=== PATIENT | female | born 1970 | race Two or more races ===

== ENCOUNTER 2017-06-14 11:24 | Inpatient (IN) | payer MEDICAID, OTHER ==
[~2017-06-14] VITALS: Ht 167.6 cm; Wt 67.1 kg
--- NOTE | 2017-06-14 12:00 | NUR ---
BBRA 860 FROM HOME FOR NAUSEA/VOMITING S/P DRINKING ALCOHOL YESTERDAY. NOTED ANXIOUS, FLUSHED. SEEN BY STOCK SHEETS CLEANER INSPECTOR FOR EVAL. VSS. IV ACCESS STARTED. BLOOD DRAWN FOR LABS. SAFETY AND COMFORT MEASURES PROVIDED. WILL MONITOR.
[2017-06-14] MEDS ORDERED: ONDANSETRON HCL/PF 4 MG/2 ML VIAL ONE (12:23)
[2017-06-14] MEDS ORDERED: LORAZEPAM INJ 2 MG/ML VIAL ONE ×3 (12:24→16:22)
[2017-06-14 12:27] LABS: BASOPHILS # (AUTO) 0.2 /CMM (0.0-0.2); BASOPHILS % (AUTO) 1.2 % (0.0-2.0); EOSINOPHILS # (AUTO) 0.1 /CMM (0.0-0.7); EOSINOPHILS % (AUTO) 0.5 % (0.0-6.0); HEMATOCRIT 45 % (33-45); HEMOGLOBIN 15.3 g/dL (11.5-14.8); LYMPHOCYTES # (AUTO) 1.4 /CMM (0.8-4.8); MEAN CORPUSCULAR HEMOGLOBIN 32 PG (26.0-33.0); MEAN CORPUSCULAR HGB CONC 34 g/dl (31.0-36.0); MEAN CORPUSCULAR VOLUME 95 fL (82-100); MONOCYTES # (AUTO) 0.8 /CMM (0.1-1.30); MONOCYTES % (AUTO) 5.6 % (2.0-12.0); NEUTROPHILS # (AUTO) 12.7 /CMM (1.8-8.9); NEUTROPHILS % (AUTO) 83.7 % (43.0-81.0); PLATELET COUNT (AUTO) 316 /CMM (150-450); RDW COEFFICIENT OF VARIATION 14.4 (11.5-15.0); RED BLOOD CELL COUNT(AUTO) 4.78 MIL/uL (4.0-5.2); WHITE BLOOD COUNT (AUTO) 15.2 K/uL (4.3-11.0)
[2017-06-14] MEDS ORDERED: IV NS 0.9% 1,000 ML BAG IV ONE (12:30)
[2017-06-14] MEDS ORDERED: LORAZEPAM INJ 2 MG/ML VIAL IVP ONE (12:30)
[2017-06-14] MEDS ORDERED: ONDANSETRON HCL/PF 4 MG/2 ML VIAL IVP ONE (12:30)
--- NOTE | 2017-06-14 12:30 | NUR ---
PT MEDICATED ORDERED.
[2017-06-14 12:37] LABS: ALANINE AMINOTRANSFERASE 40 U/L (12-78); ALBUMIN 4.8 g/dL (3.4-5.0); ALCOHOL, BLOOD < 3 mg/dL (0-0); ALKALINE PHOSPHATASE 143 U/L (46-116); ASPARTATE AMINOTRANSFERASE 82 U/L (15-37); BILIRUBIN,DIRECT 0.3 mg/dL (0.0-0.2); BILIRUBIN,TOTAL 1.2 mg/dL (0.2-1.0); CALCIUM, SERUM 9.1 mg/dL (8.5-10.1); CARBON DIOXIDE 36 mmol/L (21-32); CHLORIDE 93 mmol/L (98-107); CREATININE 1.3 mg/dL (0.6-1.3); GLUCOSE 212 mg/dL (74-106); SODIUM SERUM 141 mmol/L (136-145); TOTAL PROTEIN, SERUM 8.9 g/dL (6.4-8.2); UREA NITROGEN, BLOOD 14 mg/dL (7-18)
[2017-06-14 12:39] LABS: POTASSIUM 2.4 mmol/L (3.5-5.1)
[2017-06-14] MEDS ORDERED: LORAZEPAM INJ 2 MG/ML VIAL IV ONE (13:00)
[2017-06-14] MEDS ORDERED: POTASSIUM CHLORIDE 20 MEQ TAB.PRT.SR PO ONE ×2 (13:00→13:06)
[2017-06-14] MEDS ORDERED: POTASSIUM CL. PREMIX PERIPHER. 200 ML ONE (13:05)
[2017-06-14] MEDS: POTASSIUM CL. PREMIX PERIPHER. 50 ML IV SCH ×4 (13:30→16:35)
--- NOTE | 2017-06-14 13:35 | NUR ---
PT C/O NAUSEA/VOMTING- MANAGER BANKING MADE AWARE. NEW ORDERS CARRIED OUT.
[2017-06-14] MEDS ORDERED: PROMETHAZINE HCL 25 MG/ML AMPUL ONE (13:42)
[2017-06-14] MEDS ORDERED: Magnesium 1GM/D5W 100ML PREMIX 200 ML IV ONE (13:42)
[2017-06-14] MEDS ORDERED: PROMETHAZINE HCL 25 MG/ML AMPUL IV ONE (14:00)
[2017-06-14] MEDS: Magnesium 1GM/D5W 100ML PREMIX 100 ML IV SCH ×2 (14:20→15:25)
[2017-06-14] MEDS ORDERED: METOCLOPRAMIDE HCL 10 MG/2 ML VIAL ONE (14:35)
[2017-06-14] MEDS ORDERED: diphenhydrAMINE HCL 50 MG/ML VIAL ONE (14:35)
[2017-06-14] MEDS ORDERED: METOCLOPRAMIDE HCL 10 MG/2 ML VIAL IV ONE (15:00)
[2017-06-14] MEDS ORDERED: diphenhydrAMINE HCL 50 MG/ML VIAL IV ONE (15:00)
--- NOTE | 2017-06-14 15:11 | NUR ---
Patient is resting comfortably in bed with eyes closed. Easily aroused. VSS
--- NOTE | 2017-06-14 15:40 | NUR ---
PAGED DR TOLEDO
[2017-06-14] MEDS ORDERED: CLON1TAB4 PO (15:52)
[2017-06-14] MEDS ORDERED: CHOL400T11 PO (15:52)
[2017-06-14] MEDS ORDERED: ZOLP12.52 PO (15:52)
[2017-06-14] MEDS ORDERED: LORA1TAB PO (15:52)
[2017-06-14] MEDS ORDERED: HYDR8TAB2 PO (15:52)
[2017-06-14] MEDS ORDERED: THIA100T74 PO (15:52)
[2017-06-14] MEDS ORDERED: LAMO200T2 PO (15:52)
[2017-06-14] MEDS ORDERED: ATOR10TA PO (15:52)
--- NOTE | 2017-06-14 16:00 | NUR ---
DR. TOLEDO AT BS.
[2017-06-14] MEDS ORDERED: IV D5/0.45 NACL 1,000 ML IV PRN (16:03)
[2017-06-14] MEDS: LORAZEPAM INJ 2 MG/ML VIAL IV PRN ×2 (16:24→20:23)
[2017-06-14] MEDS ORDERED: ACETAMINOPHEN 325 MG TABLET PO PRN ×2 (16:30→17:15)
[2017-06-14] MEDS ORDERED: PANTOPRAZOLE 40 MG VIAL IV SCH (16:30)
[2017-06-14] MEDS ORDERED: Z GUARD REMEDY 2 OZ OINT TP PRN ×2 (16:30→17:15)
[2017-06-14] MEDS ORDERED: ONDANSETRON HCL/PF 4 MG/2 ML VIAL IVP PRN ×2 (16:30→17:15)
[2017-06-14] MEDS ORDERED: ZOLPIDEM TARTRATE 5 MG TABLET PO PRN (16:30)
--- NOTE | 2017-06-14 16:46 | NUR ---
REPORT GIVEN TO LARRY RN FOR TELE ROOM 320-1
[2017-06-14] MEDS: IV D5/0.45 NACL 1,000 ML IV PRN (18:57)
--- NOTE | 2017-06-14 19:11 | NUR ---
AM RN NOTE Received patient from ER @1800 as accompanied by ER staff. Pt A/O X4 verbally responsive. Denies any pain, N/V at this time. Resp even and non-labored. Placed on tele monitor, SR 90's. IV on LAC #20 intact and patent. V/S BP129/75 T98.5 P91 R19 PA0/10 O2 sat 95% at RA. Pt seen and assessed by Dr. Butts in ER. Pt refused to change her clothes at this time stated she wants to rest. Will endorse care to next shift.
[2017-06-14 19:30] VITALS: BP 149/89
--- NOTE | 2017-06-14 19:30 | NUR ---
RN NOTES RECEIVED PATIENT IN BED AWAKE, AO X 3, ABLE TO MAKE NEEDS KNOWN. NO ACUTE DISTRESS NOTED. MONITORED FOR PAIN. SKIN ASSESSMENT DONE. IV SITE PATENT, INTACT; IVF INFUSING ORDERED. SAFETY REMINDERS GIVEN. ON LOW BED WITH BILATERAL UPPER SIDE RAILS UP. CALL LIGHT WITHIN EASY REACH. WILL CONTINUE TO MONITOR.
[2017-06-14 20:00] VITALS: BP 149/89
[2017-06-14] MEDS: ZOLPIDEM TARTRATE 5 MG TABLET PO PRN (21:50)
[2017-06-15 00:46] VITALS: BP 144/85
[2017-06-15] MEDS: IV D5/0.45 NACL 1,000 ML IV PRN ×3 (03:17→21:09)
[2017-06-15] MEDS: LORAZEPAM INJ 2 MG/ML VIAL IV PRN ×6 (05:28→21:09)
--- NOTE | 2017-06-15 06:04 | NUR ---
RN NOTES PATIENT ASLEEP, EASILY AROUSABLE. RESPIRATIONS EVEN. NO SIGNS OF PAIN NOTED. NEEDS ATTENDED. SAFETY PRECAUTIONS AND COMFORT MEASURES IN PLACE. ATIVAN GIVEN TWICE FOR C/O ANXIETY; NONPHARMACOLOGICAL INTERVENTIONS INEFFECTIVE. WILL GIVE REPORT TO DAY SHIFT FOR CONTINUITY OF CARE.
--- NOTE | 2017-06-15 07:00 | NUR ---
RN INITIAL NOTES REPORT RECEIVED AT THE BEDSIDE. PATIENT IS RESTING COMFORTABLY IN BED. NO SOB OR DISTRESS NOTED AT THIS TIME. PATIENT DENIES PAIN. BED IN A LOW POSITION, CALL LIGHT WITHIN PATIENT REACH. WILL CONTINUE TO MONITOR.
[2017-06-15 08:00] VITALS: BP 124/79
[2017-06-15] MEDS: PANTOPRAZOLE 40 MG VIAL IV SCH (08:03)
--- NOTE | 2017-06-15 08:35 | NUR ---
RN NOTES DR TOLEDO ON FLOOR. REMINDED MD OF NEED OF MED RECON AND THAT PATIENT IS REQUESTING HER PAIN MEDICATION FROM HOME. MD STATES HE WILL TAKE A LOOK AT IT AND MAKE CHANGES TO ORDERS NEEDED.
[2017-06-15] MEDS: Thiamine 100 MG in IV D5W 50 ML IV SCH (09:29)
--- NOTE | 2017-06-15 09:40 | NUR ---
RN NOTES REMINDED MD OF NEED FOR RECON OF PATIENT PAIN MEDICATIONS. MD STATES HE WILL TAKE CARE OF IT.
[2017-06-15 10:15] LABS: BASOPHILS % (AUTO) 0.6 % (0.0-2.0); EOSINOPHILS % (AUTO) 0.6 % (0.0-6.0); HEMATOCRIT 41 % (33-45); HEMOGLOBIN 13.5 g/dL (11.5-14.8); LYMPHOCYTES # (AUTO) 1.5 /CMM (0.8-4.8); LYMPHOCYTES % (AUTO) 22.9 % (20.0-44.0); MEAN CORPUSCULAR HEMOGLOBIN 32 PG (26.0-33.0); MEAN CORPUSCULAR HGB CONC 33 g/dl (31.0-36.0); MEAN CORPUSCULAR VOLUME 96 fL (82-100); MONOCYTES # (AUTO) 0.4 /CMM (0.1-1.30); MONOCYTES % (AUTO) 6.6 % (2.0-12.0); NEUTROPHILS # (AUTO) 4.5 /CMM (1.8-8.9); NEUTROPHILS % (AUTO) 69.3 % (43.0-81.0); PLATELET COUNT (AUTO) 178 /CMM (150-450); RDW COEFFICIENT OF VARIATION 15.3 (11.5-15.0); WHITE BLOOD COUNT (AUTO) 6.4 K/uL (4.3-11.0)
[2017-06-15] MEDS: Folic acid 1 MG in IV D5W 50 ML IV SCH (10:22)
[2017-06-15 10:30] LABS: BILIRUBIN,TOTAL 1.4 mg/dL (0.2-1.0); CREATININE 0.9 mg/dL (0.6-1.3); MAGNESIUM 1.9 mg/dL (1.8-2.4); TOTAL PROTEIN, SERUM 7.5 g/dL (6.4-8.2)
[2017-06-15 10:38] LABS: POTASSIUM 2.7 mmol/L (3.5-5.1)
--- NOTE | 2017-06-15 10:45 | NUR ---
RN NOTES RECEIVED CALL FROM LAB THAT PT POTASSIUM IS 2.7. CALLED DR TOLEDO WHO ORDERED 60MEQ IV NOW. WILL PLACE AND CARRY OUT ORDERS.
[2017-06-15] MEDS: POTASSIUM CL. PREMIX PERIPHER. 50 ML IV SCH ×6 (10:51→19:13)
--- NOTE | 2017-06-15 11:09 | NUR ---
RN NOTES RUNNING POTASSIUM 40ML/HR WITH NS TO HELP STOP BURNING IN VEIN.
--- NOTE | 2017-06-15 13:40 | NUR ---
RN NOTES SPOKE TO DR TOLEDO ON THE PHONE AND REMINDED HIM OF MED RECON AND PAIN MEDICATIONS. MD STATES HE WILL LOOK INTO IT.
[2017-06-15 16:00] VITALS: BP 133/76
--- NOTE | 2017-06-15 16:10 | NUR ---
RN NOTES RECEIVED PATIENT AWAKE ALERT AND VERBALLY RESPONSIVE, SITTING UP IN BED, ABLE TO MAKE NEEDS KNOWN. RESPIRATIONS EVEN AND UNLABORED, CONTINUED ON PAIN MEDICATION PRN DENIES ANY PAIN AT THIS TIME. IV ACCESS PATENT AND INTACT NO REDNESS OR INFILTRATION NOTED. SAFETY MEASURES IN PLACE, KEPT CLEAN DRY AND COMFORTABLE CALL LIGHT WITHIN EASY REACH WILL CONTINUE TO MONITOR
--- NOTE | 2017-06-15 16:16 | NUR ---
RN NOTES NOT SIGNIFICANT CHANGES IN PATIENT CONDITION THROUGHOUT SHIFT. NO SOB OR DISTRESS NOTED AT THIS TIME. PATIENT REPORTS TOLERABLE PAIN. BED IN A LOW POSITION, CALL LIGHT WITHIN PATIENT REACH. ENDORSED TO WARNER REBOLLAR FOR MARTHA.
--- NOTE | 2017-06-15 19:10 | NUR ---
RN NOTES PATIENT ASLEEP EASILY AROUSABLE DURING CARE, VERBALLY RESPONSIVE, ABLE TO MAKE NEEDS KNOWN. RESPIRATIONS EVEN AND UNLABORED, PRN ATIVAN GIVEN WITH NO ASE NOTED NO N/V NOTED. IV ACCESS PATENT AND INTACT NO REDNESS OR INFILTRATION NOTED. SAFETY MEASURES IN PLACE, KEPT CLEAN DRY AND COMFORTABLE CALL LIGHT WITHIN EASY REACH WILL CONTINUE TO MONITOR AND ENDORSE TO NEXT SHIFT FOR CONTINUITY OF CARE
--- NOTE | 2017-06-15 19:15 | NUR ---
RN OPEN NOTES RECEIVED PATIENT AWAKE IN BED. A/O X4. NO SIGNS OF DISTRESS OR DISCOMFORT. BREATHING EVEN AND UNLABORED. IV ACCESS IN RFA WITH D5 1/2 NS INFUSING, PATENT AND INTACT, NO SIGNS OF REDNESS OR INFILTRATION. DENIES ANY PAIN AT THIS TIME. BED IN LOW LOCKED POSITION WITH SIDE RAILS X2. CALL LIGHT WITHIN REACH. WILL CONTINUE TO MONITOR.
[2017-06-15 19:53] VITALS: BP 142/83
[2017-06-15 20:05] VITALS: BP 142/83
--- NOTE | 2017-06-15 21:09 | NUR ---
RN NOTES ADMINISTERED ATIVAN 1MG ORDERED, AT PATIENT REQUEST FOR ANXIETY. WILL CONTINUE TO MONITOR.
[2017-06-15] MEDS: ZOLPIDEM TARTRATE 5 MG TABLET PO PRN (21:59)
[2017-06-16] MEDS: LORAZEPAM INJ 2 MG/ML VIAL IV PRN ×4 (00:32→14:22)
[2017-06-16] MEDS: IV D5/0.45 NACL 1,000 ML IV PRN (06:07)
--- NOTE | 2017-06-16 06:40 | NUR ---
RN NOTES ADMINISTERED ATIVAN 1MG ORDERED AT PATIENT REQUEST FOR ANXIETY. WILL CONTINUE TO MONITOR.
--- NOTE | 2017-06-16 06:53 | NUR ---
RN CLOSING NOTES PATIENT AWAKE IN BED. A/O X4. NO SIGNS OF DISTRESS OR DISCOMFORT. BREATHING EVEN AND UNLABORED. IV ACCESS IN RFA WITH D5 1/2 NS INFUSING, PATENT AND INTACT, NO SIGNS OF REDNESS OR INFILTRATION. DENIES ANY PAIN AT THIS TIME. ALL NEEDS MET. NO SIGNIFICANT CHANGES THROUGH THE NIGHT. BED IN LOW LOCKED POSITION WITH SIDE RAILS X2. CALL LIGHT WITHIN REACH. WILL CONTINUE TO MONITOR. Addendum: 06/16/17 at 0654 by KISHORE VALDEZ RN WILL ENDORSE TO AM SHIFT FOR MARTHA.
[2017-06-16 07:33] LABS: CALCIUM, SERUM 8.2 mg/dL (8.5-10.1); CREATININE 0.7 mg/dL (0.6-1.3); POTASSIUM 3.2 mmol/L (3.5-5.1)
--- NOTE | 2017-06-16 07:44 | NUR ---
RN NOTES PT AWAKE AND ORIENTED. RESTING IN BED. NO COMPLAINTS OF PAIN OR DISTRESS. WILL CONTINUE TO FOLLOW UP AND MONITOR. CALL LIGHT WITHIN REACH.
[2017-06-16 08:00] VITALS: BP 143/86
[2017-06-16] MEDS: Thiamine 100 MG in IV D5W 50 ML IV SCH (09:51)
[2017-06-16] MEDS: PANTOPRAZOLE 40 MG VIAL IV SCH (09:51)
[2017-06-16] MEDS: Folic acid 1 MG in IV D5W 50 ML IV SCH (10:49)
[2017-06-16] MEDS ORDERED: POTASSIUM CHLORIDE 20 MEQ POWDER PACKET PO SCH ×2 (11:00→13:30)
--- NOTE | 2017-06-16 11:01 | NUR ---
WOUND CARE CONSULT: PT PRESENTS WITH RED RASH ON LEFT SIDE OF NECK, PRESENT ON ADMISSION. DEFER TO MD FOR RASH. PT CONTINENT AND AMBULATORY. WILL SEE PRN. Addendum: 06/16/17 at 1102 by ADAM BETTS WNDNU Amended: Links added.
--- NOTE | 2017-06-16 11:15 | NUR ---
RN NOTES DR TOLEDO INFORMED PT OF PLAN OF CARE. PT VERBALIZED UNDERSTANDING. ARISTOCORTN CREAM ORDERED TO ADDRESS SKIN RASH ON NECK.
--- NOTE | 2017-06-16 11:27 | NUR ---
Social service consult requested by Dr. Butts for alcohol inpatient and outpatient referrals. Pt. is a 46 year old female who was admitted to [facility] for alcohol withdrawals and Hypokalemia. LUPE met with pt. bedside. Pt. is alert and oriented x4. Pt. was sitting up on her bed during the assessment. Pt. states she lives with her partner Sonia Cespedes [place] [address], [phone] [place] [address]. Sonia is her emergency contact and can be reached at . Pt. is currently unemployed and is receiving $900 in social security disability. Pt's partner Sonia works as the manager property at their apartment complex. 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 Pt. currently receives 4 to 5 hours per week of [employer] hours and has a caregiver for those hours. LUPE inquired pt. about her alcohol use and pt. started to cry stating " I am ashamed of starting to drink again". LUPE provided emotional support to pt. and encouraged pt. to continue to attend her AA meetings and inform her sponsor. Pt. also attends group counseling and individual counseling. Pt. suffers from Depression and Anxiety and is currently taking Klonopin, Ativan, Ambien for sleeping and Dilaudid 8 mg 4 x day, however pt. only takes Dilaudid as needed. Pt. has not been in any inpatient alcohol treatment program in the past. LUPE offered pt. inpatient and outpatient drug referrals, however pt. declined stating she attends AA and will speak with her sponsor. Pt. states she will attend Al-Anon with her mother. No other social service needs are required at this time. LUPE is available if needed. LUPE followed up with LATESHA Paredes regarding pt. not wanting any alcohol treatment program referrals. Addendum: 06/16/17 at 1223 by JOSLYN ANDRADE Pt. denies suicidal/homicidal ideations and visual/auditory hallucinations at this time. Pt. will continue to see her therapist and discuss her relapse with her sponsor.
[2017-06-16] MEDS ORDERED: TRIAMCINOLONE ACETONIDE 0.1% CR 15 GM TUBE TP SCH (12:00)
--- NOTE | 2017-06-16 15:30 | NUR ---
RN MS NOTES PT IN BED, NOT IN PAIN OR DISTRESS, DISCHARGE INSTRUCTIONS GIVEN TO PT, BELONGINGS ACCOUNTED FOR, PICKED UP BY PT'S PARTNER MAHIN, WALKED SELF OUT IN STABLE CONDITION.
== END 2017-06-16 15:30 | disposition home or self-care (01) | DRG 775 ==
LOC: ER 11:25 → TELE 17:50 → MED 23:54
PROVIDERS: ADMIT Internal Medicine; ATTEND Internal Medicine
DX: F10.239 Alcohol dependence with withdrawal, unspecified (principal); E83.42 Hypomagnesemia; E87.6 Hypokalemia; F10.229 Alcohol dependence with intoxication, unspecified; T51.0X1A Toxic effect of ethanol, accidental (unintentional), initial encounter; K29.20 Alcoholic gastritis without bleeding; E78.5 Hyperlipidemia, unspecified; Y90.0 Blood alcohol level of less than 20 mg/100 ml; K70.0 Alcoholic fatty liver
CPT/HCPCS: 36415; 76705-TC; 80048-TC; 80053-TC; 80076-TC; 83735-TC; 85025-TC; 87081-TC; A4606; C9113; G0480; J1200; J2060; J2405; J2550; J2765; J3411; J3475; J3480; J3490; J7030; J7060; Z7610